=== PATIENT | male | born 1990 | race Caucasian/White ===

== ENCOUNTER 2019-01-26 20:04 | Emergency (ER) | payer BC, OTHER ==
--- NOTE | 2019-01-26 21:15 | ED Physician Documentation ---
PD HPI UPPER EXT INJURY - Stated complaint Stated Complaint: LT THUMB INJ - Chief complaint Chief Complaint: Laceration - History obtained from History obtained from: Patient - History of Present Illness Location: Right, Finger Type of injury: Laceration Timing - onset: Enter time (19:00), Today Timing - details: Abrupt onset Pain level now: 3 Improved by: Rest Worsened by: Moving Associated symptoms: No: Weakness, Numbness, Tingling, Discolored Similar symptoms before: Has not had sx before Recently seen: Not recently seen - Additonal information Additional information: patient is right-hand dominant. At approximately 7 PM tonight, he was trying to separate frozen hamburger patties using a knife. The knife slipped and he sustained laceration to left thumb that went through the thumb, causing a laceration to each of the lateral surfaces. He says he is UTD on tetanus vaccination Review of Systems Skin: reports: Laceration (s) Neurologic: denies: Focal weakness, Numbness PD PAST MEDICAL HISTORY - Past Medical History Past Medical History: Yes Cardiovascular: None Respiratory: Asthma Neuro: None Endocrine/Autoimmune: None GI: None : None HEENT: None Psych: None Musculoskeletal: None Derm: None - Past Surgical History Past Surgical History: No - Present Medications Home Medications: Ambulatory Orders Medication Instructions Recorded Confirmed Cephalexin [Keflex] 500 mg PO Q8HR #20 capsule 01/26/19 - Allergies Allergies/Adverse Reactions: Allergies Allergy/AdvReac Type Severity Reaction Status Date / Time No Known Drug Allergies Allergy Verified 01/26/19 20:28 - Social History Does the pt smoke?: Yes Smoking Status: Current every day smoker Does the pt drink ETOH?: Yes Does the pt have substance abuse?: No - Immunizations Immunizations are current?: Yes - POLST Patient has POLST: No PD ED PE NORMAL - Vitals Vital signs reviewed: Yes - General General: Alert and oriented X 3, No acute distress, Well developed/nourished - Derm Derm: Normal color, Warm and dry - Neuro Neuro: No motor deficit (full strength in flexing and adducting thumb against resistance. Brisk capillary refill in left thumb tip), No sensory deficit (LTS intact at left thumb tip and all aspects of distal thumb (radial, ulnar, v entral, dorsal). ) PD ED PE EXPANDED - Extremities Extremities: Motor intact, Sensory intact, Vascular intact, Tendon intact MIN UE/Hands Visual: 1 - laceration 2 - laceration Results - Vitals Vitals: Vital Signs - 24 hr 01/26/19 01/26/19 01/26/19 20:23 22:15 22:27 Temperature 37.0 C 37.3 C Heart Rate 88 84 Respiratory 17 17 18 Rate Blood Pressure 140/65 H 122/68 O2 Saturation 97 96 01/26/19 22:32 Temperature Heart Rate Respiratory 16 Rate Blood Pressure O2 Saturation Oxygen O2 Source Room air Procedures - Laceration (location) Finger left Length in cm: 4 (4 cm total length of two lacerations combined) Wound type: Linear, Into subcut fat, Clean Neurovascular status: Sensory intact, Motor intact, Vascular intact Tendon involvement: Tendon intact Anesthesia: Lidocaine 1% Wound Preparation: Hibiclens, Irrigated copiously NS, Wound explored. No: FB identified Skin layer closure: Nylon, Running, Size #-0 - enter number (5-0) Other: Patient tolerated well, No complications, Neurovascular intact, Dressing applied, Tetanus UTD Complexity: Simple PD MEDICAL DECISION MAKING - ED course Complexity details: re-evaluated patient, considered differential, d/w patient Departure - Departure Disposition: 01 Home, Self Care Clinical Impression: Laceration Condition: Good Instructions: ED Laceration Hand, ED Laceration Ext Sutr Stap Tape Prescriptions: Cephalexin [Keflex] 500 mg PO Q8HR #20 capsule Comments: Follow up with your primary care provider in 2-3 days for a wound check and in 7-10 days (from today) for suture removal. Forms: Activity restrictions Discharge Date/Time: 01/26/19 22:38
[2019-01-26] MEDS ORDERED: LIDOCAINE 1% 2 ML VIAL SUBQ STA (21:21)
[2019-01-26] MEDS ORDERED: BACITRACIN ZINC OINT 14 GM TOP STA (22:22)
[2019-01-26] MEDS ORDERED: cephALEXin 250 MG CAPSULE PO STA (22:26)
[2019-01-26 22:57] VITALS: BP 122/68
== END 2019-01-26 22:38 | disposition home or self-care (01) ==
LOC: ED 20:04
DX: S61.012A Laceration without foreign body of left thumb without damage to nail, initial encounter (principal); W26.0XXA Contact with knife, initial encounter; Y93.G1 Activity, food preparation and clean up; F17.200 Nicotine dependence, unspecified, uncomplicated
CPT/HCPCS: 12002; 99283; A9270

== ENCOUNTER 2021-05-24 08:00 | Outpatient (CLI) | payer OTHER ==
--- NOTE | 2021-05-24 20:23 | XRAY Report ---
PROCEDURE: Chest 2 View X-Ray INDICATIONS: LEFT SIDE CP X 2 WEEKS TECHNIQUE: 2 view(s) of the chest. COMPARISON: None. FINDINGS: Surgical changes and devices: None. Lungs and pleura: No pleural effusions or pneumothorax. Lungs are clear. Mediastinum: Mediastinal contours are normal. Heart size is normal. Bones and chest wall: No suspicious bony abnormalities. Soft tissues appear unremarkable. IMPRESSION: No acute cardiopulmonary pathology. Reviewed by: Luis Felipe Burciaga MD on 05/24/2021 8:22 PM [facility] Approved by: Luis Felipe Burciaga MD on 05/24/2021 8:22 PM [facility] Station ID: [id number]
== END 2021-05-24 23:59 ==
LOC: DI.N 08:00
PROVIDERS: ATTEND Physician Assistant Medical
DX: R07.9 Chest pain, unspecified (principal)
CPT/HCPCS: 36415; 84484; 85379

== ENCOUNTER 2021-05-24 08:00 | Outpatient (CLI) | payer OTHER | END 2021-05-24 23:59 | LOC: LAB.N 08:00 | PROVIDERS: ATTEND Physician Assistant Medical | DX: R07.9 Chest pain, unspecified (principal) | CPT/HCPCS: 36415; 84484; 85379 ==

== ENCOUNTER 2023-09-18 19:44 | Emergency (ER) | payer OTHER ==
[2023-09-18 20:07] VITALS: O2SAT 100
[2023-09-18] MEDS: BUFFERED LIDOCAINE 10 ML SYRINGE SUBQ STA (21:03)
--- NOTE | 2023-09-18 21:21 | ED Physician Documentation ---
PD HPI UPPER EXT INJURY - Stated complaint Stated Complaint: RT HAND LAC - Chief complaint Chief Complaint: Laceration - History obtained from History obtained from: Patient (Right-handed gentleman who is up-to-date on tetanus cut his right middle finger with a punch box tender at home just prior to arrival. Pain is minimal.) PD PAST MEDICAL HISTORY - Past Medical History Past Medical History: No Cardiovascular: None Respiratory: Asthma Neuro: None Endocrine/Autoimmune: None GI: None : None HEENT: None Psych: None Musculoskeletal: None Derm: None - Past Surgical History Past Surgical History: No - Present Medications Home Medications: Ambulatory Orders Medication Instructions Recorded Confirmed cephALEXin [Keflex] 500 mg PO Q8HR #20 capsule 01/26/19 - Allergies Allergies/Adverse Reactions: Allergies Allergy/AdvReac Type Severity Reaction Status Date / Time No Known Drug Allergies Allergy Verified 09/18/23 19:48 - Social History Does the pt smoke?: Yes Smoking Status: Current every day smoker Does the pt drink ETOH?: Yes Does the pt have substance abuse?: No - Immunizations Immunizations are current?: Yes - POLST Patient has POLST: No PD ED PE NORMAL - Vitals Vital signs reviewed: Yes - General General: Alert and oriented X 3, No acute distress - Extremities Extremities: Other (2 cm linear laceration on the pulp of the right middle finger without distal neurovascular compromise.) - Neuro Neuro: Alert and oriented X 3, Normal speech Results - Vitals Vitals: Vital Signs - 24 hr 09/18/23 19:48 Temperature 36.8 C Heart Rate 90 Respiratory 16 Rate Blood Pressure 160/100 H O2 Saturation 100 Oxygen O2 Source Room air Procedures - Laceration (location) R 3rd finger Length in cm: 2 Wound type: Linear, Into subcut fat Neurovascular status: Sensory intact, Motor intact Anesthesia: Lidocaine 1%, With bicarb (Digital block with excellent anesthesia.) Wound preparation: Hibiclens, Irrigated copiously NS Skin layer closure: Nylon, Interrupted, Size #-0 - enter number (5-0), Sutures - enter # (5) Other: Tetanus UTD Departure - Departure Disposition: 01 Home, Self Care Clinical Impression: Laceration of right middle finger Qualifiers: Encounter type: initial encounter Damage to nail status: without damage Foreign body presence: without foreign body Qualified Code(s): S61.212A - Laceration without foreign body of right middle finger without damage to nail, initial encounter Condition: Good Record reviewed to determine appropriate education?: Yes Instructions: ED Laceration Hand Comments: Come back for any signs of infection which would include: Redness, swelling, drainage, increased pain, or fevers. You can wash it soap and water. Keep it covered and moist with bacitracin ointment which is available over the counter; avoid neosporin. Follow-up with your physician in about 14 days for suture removal. Forms: PCP List, Activity restrictions
[2023-09-18 21:52] VITALS: BP 140/90
== END 2023-09-18 21:48 | disposition home or self-care (01) ==
LOC: ED 19:44
DX: S61.212A Laceration without foreign body of right middle finger without damage to nail, initial encounter (principal); W26.0XXA Contact with knife, initial encounter; Y92.009 Unspecified place in unspecified non-institutional (private) residence as the place of occurrence of the external cause; F17.200 Nicotine dependence, unspecified, uncomplicated
CPT/HCPCS: 12001; 99283